=== PATIENT | male | born 1985 | race Hispanic/Latino ===

== ENCOUNTER 2023-04-18 15:38 | Emergency (ER) | payer SELFPAY ==
[2023-04-18] MEDS ORDERED: Ibuprofen 200 MG TAB ONE (16:57)
[2023-04-18 16:58] LABS: SARS-CoV-2 NAA Rapid Test Not Detected (NotDetected)
[2023-04-18 17:58] LABS: SARS-CoV-2 NAA Rapid Test Not Detected (NotDetected)
== END 2023-04-18 17:36 | disposition home or self-care (01) ==
LOC: CSHERS 15:38
DX: B34.9 Viral infection, unspecified (principal)
CPT/HCPCS: 99284; U0002